=== PATIENT | female | born 1960 | race Caucasian/White ===

== ENCOUNTER 2021-08-24 10:44 | Emergency (ER) | payer BC ==
[~2021-08-24] VITALS: Ht 167.6 cm; Wt 86.2 kg
--- NOTE | 2021-08-24 10:55 | NUR ---
verbal order to dc saline lock.
--- NOTE | 2021-08-24 10:58 | NUR ---
Patient ambulatory, alert and orientedx4 with complaints of abdominal pain 6/10 for a week and chills,nausea for 3 days. Denies nausea,vomiting,SOB, chest pain. Vitals stable.
--- NOTE | 2021-08-24 11:06 | NUR ---
MD at bedside, medical screening exam in progress.
[2021-08-24 11:10] LABS: *BILIRUBIN,URIN NEGATIVE (NEGATIVE); *BLOOD, URINE 1+ (NEGATIVE); *CLARITY,URINE CLEAR (CLEAR); *COLOR,URINE YELLOW (YELLOW); *KETONES,URINE NEGATIVE (NEGATIVE); *UROBILINOGEN,URINE 0.2 E.U./dl (NORMAL); LEUKOCYTE ESTERASE ,URINE NEGATIVE (NEGATIVE); NITRITE, URINE NEGATIVE (NEGATIVE); UGLUCOSE NEGATIVE (NEGATIVE)
[2021-08-24] MEDS ORDERED: ONDANSETRON ODT 4 MG TAB.RAPDIS SL ONE (11:15)
[2021-08-24] MEDS ORDERED: MORPHINE SULFATE 4 MG/1 ML DISP.SYRIN IM ONE (11:15)
[2021-08-24] MEDS ORDERED: ONDANSETRON ODT 4 MG TAB.RAPDIS ONE (11:16)
[2021-08-24] MEDS ORDERED: MORPHINE SULFATE 4 MG/1 ML DISP.SYRIN ONE (11:16)
[2021-08-24] MEDS ORDERED: KETOROLAC TROMETHAMINE 60 MG INJ IM ONE ×2 (11:19→11:30)
[2021-08-24 11:40] LABS: HEMATOCRIT 42.4 % (31.2-41.9); MEAN CORPUSCULAR HEMOGLOBIN 31.5 uug (24.7-32.8); MEAN CORPUSCULAR VOLUME 91.7 fL (75.5-95.3); PLATELET COUNT (AUTO) 229 K/uL (179-408)
[2021-08-24 11:48] LABS: CREATININE 0.8 mg/dL (0.6-1.3)
[2021-08-24 11:53] LABS: BILIRUBIN,DIRECT 0.1 mg/dL (0.0-0.2); BILIRUBIN,TOTAL 0.3 mg/dL (0.2-1.0); TOTAL PROTEIN, SERUM 8.4 g/dL (6.4-8.2)
[2021-08-24] MEDS ORDERED: ONDA4TAB11 PO (12:24)
[2021-08-24 12:33] VITALS: BP 115/70
--- NOTE | 2021-08-24 12:34 | NUR ---
Patient discharged to home in stable condition. Written and verbal after care instructions given. Patient verbalizes understanding of instructions. Stressed follow up or return to ER for worsening s/s.
[2021-08-24 13:45] LABS: BACTERIA,URINE NONE SEEN /HPF (NONE SEEN); RBC,URINE 0-3 /HPF (0-3); SQUAMOUS EPITHELIAL CELL,UR NONE SEEN /HPF (NONE SEEN); WBC,URINE 0-3 /HPF (0-3)
== END 2021-08-24 12:34 | disposition home or self-care (01) ==
LOC: ER 10:44
DX: R10.84 Generalized abdominal pain (principal); R11.0 Nausea; F17.211 Nicotine dependence, cigarettes, in remission
CPT/HCPCS: 36415; 80048; 80076; 81001; 83690; 85025; 93005; 96372; 99284; J1885; A4663; J2270; Q0162